=== PATIENT | female | born 2000 | race Caucasian/White ===

== ENCOUNTER 2024-12-06 12:23 | Emergency (ER) | payer BC, SELFPAY ==
[2024-12-06 12:31] VITALS: BP 109/67
--- NOTE | 2024-12-06 13:06 | ED.GENMED ---
History of Present Illness
General
Chief Complaint: Musculo-Skeletal Complaint
Time Seen by Provider: 12/06/24 12:51
History of Present Illness
History of Present Illness:
20 for a female presents for evaluation of a left ankle injury sustained yesterday evening when she tripped walking down the stairs. She is able to bear weight with discomfort. Primary location of the pain is the ATFL region of the left ankle.
Past History
Past History
ED Past Medical History: Other (Previous removal of a thyroglossal duct cyst)
ED Past Surgical History: None
Social History
Tobacco: Non-smoker
Alcohol: Occasional
Personal: Single
Living: with family
Employment: Student
Family History
Family History: Negative Diabetes, Hypertension or CAD
Review of Systems
Review of Systems
Allergies reviewed?: Yes
All Other Systems: ROS reviewed and negative except as documented in HPI and ROS
Phy Exam
Physical Exam
Physical Exam:
GEN: Well appearing, NAD, WDWN
HEENT: Oral mucosa moist, no scleral icterus
Cardiac: Regular rate
Lung: No respiratory distress, no tachypnea
MSK: Minor ecchymosis of the left ankle along the ATFL region, no ankle joint effusion or significant swelling, range of motion is normal
Skin: Good color, no pallor or jaundice, no rashes
Neuro: AO x3, moves all extremities freely
Psych: Calm, cooperative
Course
Orders/Labs/Results
Orders:
Orders
12/06/24 12:34
Ankle, left 3 view CR [CR Ankle - Left Min 3 Views ] Urgent
Comment:
Reason For Exam: injury
Vital Signs
Initial and Last Documented VS:
Initial Vital Signs
Temp Pulse Resp BP Pulse Ox
98.5 F 75 16 109/67 100
12/06/24 12:31 12/06/24 12:31 12/06/24 12:31 12/06/24 12:31 12/06/24 12:31
Last Documented Vital Signs
Temp Pulse Resp BP Pulse Ox
98.5 F 75 16 109/67 100
12/06/24 12:31 12/06/24 12:31 12/06/24 12:31 12/06/24 12:31 12/06/24 12:31
MDM/Problems Addressed
MDM/Problems Addressed:
Imaging is negative for acute osseous abnormality. Discussed supportive care for ankle sprain
*Critical Care Note
Total Time (30-74mins, 75-104mins- exclusive of procedures): Not Applicable
ED Attending Note
-
Portions of this chart may have been created with voice recognition software.� Occasional wrong word or��sound alike� substitutions may have occurred due to the inherent limitations of voice recognition software.
Discharge Plan
Departure
Patient Disposition: Home (Routine Discharge)
Date of Disposition: 12/06/24
Time of Disposition: 13:06
Patient with high blood pressure during this ER visit?: No
Discharge Problem:
Moderate left ankle sprain
Instructions: Ankle sprain - ED discharge instructions
Prescriptions:
No Action
norgestimate-ethinyl estradiol [Tri Femynor] 1 EACH tablet
1 ea PO DAILY
loratadine 10 MG tablet
10 mg PO DAILY
ibuprofen 200 MG tablet
400 - 600 mg PO Q6HPRN PRN (Reason: moderate pain) Qty: 1 0RF
oxycodone-acetaminophen 5 MG/325 MG tablet
1 tab PO Q4HPRN PRN (Reason: pain) Qty: 15 0RF
amoxicillin-pot clavulanate 875-125 mg tablet
1 tab PO BID Qty: 14 0RF
Referrals:
Harvinder Davis MD [Active] -
Activity Restrictions/Additional Instructions:
Perform 'ankle alphabets' daily (lie on the couch with your leg/foot suspended in the air, write the alphabet with your toes)
Ice often to reduce swelling
Ibuprofen for pain
If symptoms do not improve in 2-3 weeks, follow up with Orthopedics
Interventions
Interventions:
*Risk Screen - Suicide Last Done: 12/06/24 12:31
*Neglect/Abuse Screening Last Done: 12/06/24 12:31
*Nursing Disposition Last Done: 12/06/24 13:53
ED-Musculoskeletal Assessment Last Done: 12/06/24 13:52
Discharge Date and Time
Discharge Date/Time: 12/06/24 13:54
Print Language: MALAWIAN
== END 2024-12-06 13:54 | disposition home or self-care (01) ==
LOC: EMR 12:23
PROVIDERS: EMERGENCY PHYSICIAN Emergency Medicine; FAMILY PHYSICIAN Family Medicine
DX: S93.402A Sprain of unspecified ligament of left ankle, initial encounter (principal); S90.02XA Contusion of left ankle, initial encounter; W18.43XA Slipping, tripping and stumbling without falling due to stepping from one level to another, initial encounter; Y93.01 Activity, walking, marching and hiking
CPT/HCPCS: 99283; 73610